=== PATIENT | female | born 1985 | race Asian ===

== ENCOUNTER 2020-12-12 13:08 | Emergency (ER) | payer MEDICAID ==
[~2020-12-12] VITALS: Ht 157.5 cm; Wt 66.7 kg
[2020-12-12 13:28] VITALS: BP_SYST 122
[2020-12-12] MEDS: NACL 0.9% 1,000 ML IV ONE (13:53)
[2020-12-12] MEDS: ONDANSETRON HCL 4 MG/2 ML VIAL IVP ONE (14:05)
[2020-12-12] MEDS: KETOROLAC TROMETHAMINE 30 MG VIAL IVP ONE (14:05)
[2020-12-12 14:13] LABS: BILIRUBIN,URINE NEGATIVE (NEGATIVE); BLOOD, URINE 1+ (NEGATIVE); COLOR,URINE YELLOW (YELLOW); GLUCOSE,URINE NEGATIVE (NEGATIVE); KETONES,URINE TRACE (NEGATIVE); LEUKOCYTE ESTERASE ,URINE TRACE (NEGATIVE); NITRITE, URINE NEGATIVE (NEGATIVE); PROTEIN URINE NEGATIVE (NEGATIVE); UROBILINOGEN,URINE 0.2 (0.2-1.0)
[2020-12-12 14:16] LABS: CLARITY/URINE HAZY (CLEAR)
[2020-12-12 14:20] LABS: BASOPHILS # (AUTO) 0.1 K/uL (0.0-0.2); BASOPHILS % (AUTO) 0.3 % (0.0-2.0); EOSINOPHILS % (AUTO) 0.2 % (0.0-4.0); HEMATOCRIT 40.3 % (36-48); HEMOGLOBIN 13.5 g/dL (12.0-16.0); LYMPHOCYTES # (AUTO) 1.3 K/uL (1.0-5.5); LYMPHOCYTES % (AUTO) 7.6 % (20.5-51.5); MEAN CORPUSCULAR HEMOGLOBIN 31 pg (27-31); MEAN CORPUSCULAR HGB CONC 34 % (32-36); MEAN CORPUSCULAR VOLUME 92 fL (79.0-98.0); MONOCYTES # (AUTO) 0.5 K/uL (0.0-1.0); MONOCYTES % (AUTO) 3.2 % (1.7-9.3); NEUTROPHILS # (AUTO) 15.3 K/uL (1.8-7.7); NEUTROPHILS % (AUTO) 88.7 % (40.0-70.0); PLATELET COUNT (AUTO) 423 K/uL (130-430); RED BLOOD CELL COUNT(AUTO) 4.37 MIL/uL (4.2-6.2); RED CELL DISTRIBUTION WIDTH 12.9 % (9.0-15.0); WHITE BLOOD COUNT (AUTO) 17.3 K/uL (4.8-10.8)
[2020-12-12 14:27] LABS: CREATININE 0.8 mg/dL (0.55-1.30); POTASSIUM 3.8 mmol/L (3.5-5.1)
[2020-12-12 14:30] LABS: BACTERIA,URINE FEW /HPF (None Seen); WBC,URINE 0-3 /HPF (0-3)
[2020-12-12 14:31] LABS: MUCUS,URINE 1+ /LPF (None Seen)
[2020-12-12 14:33] LABS: ALBUMIN 3.9 g/dL (3.4-4.8); TOTAL BILIRUBIN 0.3 mg/dL (0.0-1.0)
[2020-12-12] MEDS ORDERED: CIPR250T4 PO ×2 (16:22→16:24)
[2020-12-12 16:30] VITALS: BP_SYST 166
== END 2020-12-12 16:30 | disposition home or self-care (01) ==
LOC: SED 13:08
DX: N39.0 Urinary tract infection, site not specified (principal); R11.2 Nausea with vomiting, unspecified; E11.9 Type 2 diabetes mellitus without complications
CPT/HCPCS: 36415; 76700; 80053; 81000; 81025; 83690; 85025; 87086; 96361; 96374; 96375; 99284; J1885; J2405; J7030